=== PATIENT | female | born 1945 | race American Indian/Alaskan Native ===

== ENCOUNTER 2017-04-20 03:59 | Emergency (ER) | payer MEDICARE, OTHER ==
[2017-04-20] MEDS ORDERED: NOREPINEPHRINE BIT/0.9 % NACL 4 MG/250 ML BAG IV ONE ×2 (04:28)
--- NOTE | 2017-04-20 04:45 | ED PDOC ---
Arrival/HPI - General Time Seen by Provider: 04/20/17 04:02 Historian: Family (Daughter), Other (Tenant) - History of Present Illness Narrative History of Present Illness (Text): 04/20/17 03:55 Minda Weller is a 71 year old female who presents to the Emergency department brought in for cardiac arrest prior to arrival. As per patient's tenant, patient was complaining of "gas pains" earlier tonight, took gas relief medication without any significant relief, and asked to be brought to the Emergency room. Tenant reports on arrival to the Emergency department, patient collapsed and began convulsing outside in the ambulance bay while walking towards the waiting room. Emergency room staff were notified, placed patient on stretcher, and noted patient to be in cardiac arrest. ACLS protocol immediately initiated. Limited HPI and ROS due to cardiac arrest. Time/Duration: Prior to Arrival Symptom Onset: Sudden Symptom Course: Unchanged Severity Level: Severe Context: Walking Past Medical History - Provider Review Nursing Documentation Reviewed: Yes Family/Social History - Physician Review Nursing Documentation Reviewed: Yes Family/Social History: Unknown Family HX Allergies/Home Meds Allergies/Adverse Reactions: Allergies Unobtainable Allergy (Unverified 04/20/17 04:39) Review of Systems - Review of Systems Systems not reviewed;Unavailable: Other (cardiac arrest) Physical Exam Vital Signs Reviewed: Yes Temperature: Afebrile Blood Pressure: Other (0/0) Pulse: Pulseless Pain Distress: None Mental Status: Positive for: other (Unresponsive) - Systems Exam Head: Present: Atraumatic, Normocephalic Pupils: Present: Other (Fixed and dilated) Conjunctiva: Present: Normal Mouth: Present: Moist Mucous Membranes Neck: Present: Normal Range of Motion Respiratory/Chest: Present: Other (Equal breath sounds bilaterally) Cardiovascular: No: Regular Rate and Rhythm (V-fib) Abdomen: No: Distention, Peritoneal Signs Upper Extremity: No: Edema Lower Extremity: No: Edema Neurological: Present: Other (Unresponsive to painful stimuli) Skin: Present: Other (Cyanotic) Psychiatric: Present: Other (unresponsive) Medical Decision Making ED Course and Treatment: 04/20/17 03:55 Impression: 71 year old female brought in cardiac arrest prior to arrival. Differential Diagnosis included but are not limited to: cardiac arrest Plan: -- EKG -- CXR -- Labs, cardiac enzymes, BNP, lipase -- Reassess and disposition Progress Notes: 04/20/17 03:55 ER staff notified pt collapsed outside in ambulance bay. Pt placed on stretcher , transferred in to ER, and noted to be in cardiac arrest. ACLS protocol initiated. 04/20/17 03:59 CPR commenced. Pt placed on continuous telemetry, in V-fib. Pt intubated and cardioverted x 5. Multiple doses of Epi administered, 1 dose of Amiodarone, and Atropine. Pt with ROSC. PROCEDURE: INTUBATION Performed by the emergency provider Pre-oxygenation: [id number] Medications: See MAR for details. ETT Size: 8 Confirmation: Cords directly visualized as tube passed, good bilateral breath sounds, positive CO2 detector color change, tube fogging, adequate chest rise, improving pulse oximetry reading, improved skin color, and absence of gastric sounds,. ETT Secured: The cuff was inflated and the tube was secured appropriately at a distance of 23 cm at the lip. Post-Procedure: There were no immediate complications. CXR Confirmation: No Total dose of Epi, Atropine, and Amiodarone as documented on code sheet/nursing documentation. Pt placed on transcutaneous pacer. 04/20/17 04:47 reviewed post-cardiac arrest EKG, junctional bradycardia at 38 bpm. Acute anterior wall MO. Manager Integration paged. Case discussed in detail with Josesito Sadler, rehabilitator/science consultant song and dance performer, who is aware and agrees with plan. Code Heart called. 04/20/17 05:02 Notified by RN, pt became asystolic, pulseless, with no blood pressure. Code Heart canceled. CPR commenced. Multiple episodes of Epi administer, refer to second code sheet/nursing documentation. Time of : 05:17 Daughter present in ER. Counseled regarding p's case and resuscitation efforts. All questions answered and pt verbalizes understanding. ME notified. 04/20/17 05:53 Spoke with medical territory manager. No primary physician for patient available on record. Requesting certificate signature. Will sign certificate. 04/21/17 05:54 - Critical Care Critical Care Minutes: 45 minutes - Lab Interpretations Lab Results: 04/20/17 04:00 04/20/17 04:00 Lab Results 04/20/17 04:00: Troponin I < 0.01, NT-Pro-B Natriuret Pep 22.3 04/20/17 04:00: Sodium 143, Potassium 4.1, Chloride 103, Carbon Dioxide 27, Anion Gap 17, BUN 16, Creatinine 1.0, Est GFR ( Amer) > 60, Est GFR (Non- Af Amer) 55, Random Glucose 137 H, Calcium 9.2, Total Bilirubin 0.5, AST 25, ALT 27, Alkaline Phosphatase 74, Lactate Dehydrogenase 510, Total Creatine Kinase 217, Troponin I < 0.01, Total Protein 7.0, Albumin 4.1, Globulin 2.9, Albumin/Globulin Ratio 1.4, Lipase 60 04/20/17 04:00: PT 10.8, INR 1.00, APTT 22.9 L 04/20/17 04:00: WBC 7.5, RBC 4.42, Hgb 13.7, Hct 42.1, MCV 95.2, MCH 31.0, MCHC 32.5, RDW 14.5, Plt Count 257, MPV 10.0 I have reviewed the lab results: Yes - RAD Interpretation Radiology Orders: 04/20/17 04:40 CHEST PORTABLE [RAD] Stat - EKG Interpretation Interpreted by ED Physician: Yes Type: 12 lead EKG - Scribe Statement The provider has reviewed the documentation as recorded by the Scribe Marisol Hickman All medical record entries made by the Scribe were at my direction and personally dictated by me. I have reviewed the chart and agree that the record accurately reflects my personal performance of the history, physical exam, medical decision making, and the department course for this patient. I have also personally directed, reviewed, and agree with the discharge instructions and disposition. Disposition/Present on Arrival - Present on Arrival Any Indicators Present on Arrival: No - Disposition Have Diagnosis and Disposition been Completed?: Yes Diagnosis: Cardiac arrest Disposition: WITH WITHOUT AUTOPSY Disposition Time: 05:17 Condition: Referrals: PCP,NO [Primary Care Provider] - Follow up with primary Forms: [employer] (Faroese)
[2017-04-20 04:52] LABS: ALB/GLOB RATIO 1.4 (1.1-1.8); ALKALINE PHOSPHATASE 74 U/L (38-126); ALT/SGPT 27 U/L (7-56); AST/SGOT 25 U/L (14-36); BILIRUBIN,TOTAL 0.5 mg/dL (0.2-1.3); BLOOD UREA NITROGEN 16 mg/dL (7-21); CALCIUM 9.2 mg/dL (8.4-10.5); CARBON DIOXIDE 27 mmol/L (21-33); CHLORIDE 103 mmol/L (98-107); GFR AFRICAN-AMERICAN > 60; GLUCOSE,RANDOM 137 mg/dL (70-110); LIPASE 60 U/L (23-300); POTASSIUM 4.1 mmol/L (3.6-5.0); SODIUM 143 mmol/L (132-148)
[2017-04-20 05:01] LABS: HEMATOCRIT 42.1 % (36.0-48.0); MEAN CELL VOLUME 95.2 fl (80.0-105.0); MEAN CORPUSCULAR HGB CONC 32.5 g/dl (31.0-37.0); RED CELL DISTRIBUTION WIDTH 14.5 % (11.5-14.5); WHITE BLOOD COUNT 7.5 10^3/ul (4.5-11.0)
[2017-04-20 05:05] LABS: PARTIAL THROMBOPLASTIN TIME 22.9 Seconds (23.7-30.8)
[2017-04-20] MEDS ORDERED: Lidocaine 2% Inj (20ml) ONE (05:10)
[2017-04-20] MEDS ORDERED: Phenylephrine 10 mg/ml Inj ONE (05:10)
[2017-04-20] MEDS ORDERED: Midazolam 2 MG/2 ML VIAL ONE (05:10)
[2017-04-20 05:11] LABS: TROPONIN I < 0.01 ng/mL
[2017-04-20] MEDS ORDERED: Nitroglycerin 50mg in D5W 50 MG/250 ML BOTTLE IV ONE (05:11)
[2017-04-20] MEDS ORDERED: Iodixanol 320 MG/ML 100 ML BOTTLE IV ONE (05:11)
[2017-04-20] MEDS ORDERED: Iodixanol 320 MG/ML 200 ML BOTTLE IV ONE (05:11)
[2017-04-20] MEDS ORDERED: Iohexol 350mgl/ml 50 ML ONE (05:11)
--- NOTE | 2017-04-20 05:32 | CP.PCM.PN ---
<Efraín Jimenez - Last Filed: 04/20/17 05:33> Subjective - Date & Time of Evaluation Date of Evaluation: 04/20/17 Time of Evaluation: 04:54 - Subjective Subjective: CODE HEART called at [phone], House Physician and resident responded promptly. Upon arrival to the ED, found patient intubated, transcutaneously paced, unresponsive. As per ED staff, pt brought in by family for unremitting "gas pains," collapsed in front of ED convulsing, found to be in VFib then cardiac arrest, underwent Code, receiving multiple Epinephrines and CPR for ~30 minutes , ROSC obtained. ROS and Pt history unknown given current state, no prior [place] [facility] [place]. Transcutaneous pacing initiated, Linting Machine Operator fish conservationist notified, agreed to cardiac cath for patient. Unfortunately, patient redeveloped cardiac arrest despite transcutaneous pacing, determined to be pulseless, in asystole, CPR reinitiated and given more epinephrine, but unable to obtain ROSC; patient declared by ED staff. Objective - Labs Labs: 04/20/17 04:00 04/20/17 04:00 PT 10.8 Seconds (9.9-11.8) 04/20/17 04:00 INR 1.00 (0.93-1.08) 04/20/17 04:00 APTT 22.9 Seconds (23.7-30.8) L 04/20/17 04:00 <Kinjal Gonzalez - Last Filed: 04/20/17 05:41> Objective - Labs Labs: 04/20/17 04:00 04/20/17 04:00 PT 10.8 Seconds (9.9-11.8) 04/20/17 04:00 INR 1.00 (0.93-1.08) 04/20/17 04:00 APTT 22.9 Seconds (23.7-30.8) L 04/20/17 04:00 Attending/Attestation - Attestation I have personally seen and examined this patient.: Yes I have fully participated in the care of the patient.: Yes I have reviewed all pertinent clinical information, including history, physical exam and plan: Yes Notes (Text): 04/20/17 05:41 Agree with above documentation.
[2017-04-20 05:43] LABS: TROPONIN I < 0.01 ng/mL
--- NOTE | 2017-04-20 13:11 | RAD ---
HISTORY: cardiac arrest COMPARISON: No prior. FINDINGS: In situ ETT, tip of which lies in the right mainstem bronchus. This must be withdrawn. Findings discussed with ER Dr. Ying at approximately 1 p.m. with written down and read back verification. LUNGS: Diffuse bilateral infiltrates PLEURA: No significant pleural effusion identified, no pneumothorax apparent. CARDIOVASCULAR: Normal. OSSEOUS STRUCTURES: No significant abnormalities. VISUALIZED UPPER ABDOMEN: Normal. OTHER FINDINGS: None. IMPRESSION: ETT tip lies within the right mainstem bronchus and should be withdrawn. Diffuse bilateral infiltrates. Findings discussed with emergency room Dr. Ying at approximately 1 p.m. with written down and read back verification.
--- NOTE | 2017-04-21 12:26 | CARD ---
APPROVED REPORT EKG Measurement Heart [id number] <Conclusion> Junctional bradycardia Rightward axis Low voltage QRS Anteroseptal infarct, possibly acute Inferolateral injury pattern ACUTE NH Abnormal ECG
== END 2017-04-20 15:00 ==
LOC: ED 03:59
DX: I46.9 Cardiac arrest, cause unspecified (principal)
CPT/HCPCS: 31500; 71010; 80053; 82550; 83615; 83690; 83880; 84484; 85027; 85610; 85730; 93005; 99291; J1644; Q9967